=== PATIENT | male | born 1995 | race Caucasian/White ===

== ENCOUNTER 2020-04-21 04:04 | Emergency (ER) | payer OTHER ==
[~2020-04-21 04:04] MED LIST: HYDROXYZINE HCL50 MG PO; PRINIVIL10 MG PO; PRINIVIL20 MG PO; TOPROL XL 25MG25 MG PO; XANAX0.25 MG PO
[2020-04-21 04:45] LABS: BASOPHIL 0.3 % (0-2); EOSINOPHIL 0.2 % (0-5); HCT 42.3 % (42.0-52.0); HGB 13.8 g/dl (13.2-18.0); LYMPHOCYTE 19.4 % (15-48); MCH 28.8 pg (25.0-31.0); MCHC 32.6 g/dL (32.0-36.0); MCV 88.3 fL (78.0-100.0); MONOCYTE 9.1 % (0-12); MPV 9.8 fL (6.0-9.5); NEUTROPHIL 70.4 % (41-80); NRBC 0; PLT 267 K/uL (150-400); RBC 4.79 M/uL (4.70-6.00); RDW 14.1 % (11.5-14.0); WBC 20.3 K/uL (4.0-10.5)
[2020-04-21 04:58] LABS: INR 1.08 (0.9-1.2); PROTHROMBIN TIME 13.3 SECONDS (11.4-13.6); PTT 28.1 SECONDS (22.2-34.7)
[2020-04-21 04:59] LABS: D-DIMER 0.39 ug/mLFEU (0.00-0.41)
[2020-04-21 05:04] LABS: ALBUMIN 3.3 g/dL (3.4-5.0); BILIRUBIN - TOTAL 0.4 mg/dL (0.2-1.0); BUN/CREAT RATIO (CALC) 12.8 RATIO; CREATININE 1.64 mg/dL (0.67-1.17); GLOBULIN (CALCULATION) 3.5 g/dL; POTASSIUM 3.5 mmol/L (3.5-5.1); TOTAL PROTEIN 6.8 g/dL (6.4-8.2)
[2020-04-21 05:12] LABS: PRO-BNP 705 pg/mL (<125)
[2020-04-21 05:31] LABS: LACTIC ACID 0.9 mmol/L (0.4-1.9)
[2020-04-21 05:57] LABS: BILIRUBIN NEGATIVE (NEGATIVE); BLOOD 2+ Ery/uL (NEGATIVE); CLARITY CLEAR (CLEAR); COLOR YELLOW (YELLOW); GLUCOSE (U) NORMAL (NORMAL); LEUKOCYTES NEGATIVE Leu/uL (NEGATIVE); NITRITE NEGATIVE (NEGATIVE); PROTEIN NEGATIVE (NEGATIVE); UROBILINOGEN 0.2 mg/dL (0.2-1.0); pH 5.5 (5.0-9.0)
[2020-04-21 06:07] LABS: URINARY WBC RARE
[2020-04-21] MEDS ORDERED: NORCO 5-325 TA1 EACH PO (06:23)
== END 2020-04-21 06:40 | disposition home or self-care (01) ==
LOC: FER 04:04
PROVIDERS: Emergency Medicine
DX: M54.9 Dorsalgia, unspecified (principal); R31.9 Hematuria, unspecified; I10 Essential (primary) hypertension; R06.02 Shortness of breath; E66.9 Obesity, unspecified; Z79.899 Other long term (current) drug therapy; Z87.39 Personal history of other diseases of the musculoskeletal system and connective tissue
CPT/HCPCS: 36415; 71275; 72193; 80053; 81001; 83605; 83880; 84484; 85025; 85379; 85610; 85730; 87040; 87088; 93005; J1170; J2270; J2405; J7030; Q9967